=== PATIENT | male | born 1975 | race Caucasian/White ===

== ENCOUNTER 2020-11-29 11:21 | Emergency (ER) | payer SELFPAY ==
[~2020-11-29] VITALS: Ht 175.3 cm; Wt 89.4 kg
[2020-11-29 11:30] VITALS: BP 151/120
--- NOTE | 2020-11-29 11:30 | NUR ---
PT TAKEN TO BED 5 FOR BEDSIDE TRIAGE.
--- NOTE | 2020-11-29 11:55 | NUR ---
45 Y/O M BIB SELF FROM HOME, PATIENT PRESENTS TO ED WITH FOUL SMELLING URINE FOR 1 WEEK. PT DENIES ANY INCREASED FREQUENCY, DYSURIA, BLOOD, RETENTION OR ABD PAIN. DENIES N/V/D; SKIN IS PINK/WARM/DRY; AAOX4 WITH EVEN AND STEADY GAIT; LUNGS CLEAR BL; HR EVEN AND REGULAR; PT DENIES ANY FEVER, CP, SOB, OR COUGH AT THIS TIME; PATIENT STATES PAIN OF 0/10 AT THIS TIME; VSS; PATIENT POSITIONED FOR COMFORT; HOB ELEVATED; BEDRAILS UP X2; BED DOWN. ER MD MADE AWARE OF PT STATUS. PMH: DENIES NKA MED: NONE
--- NOTE | 2020-11-29 11:57 | NUR ---
PHILIP Milan is evaluating the patient at bedside.
[2020-11-29 12:10] LABS: APPEARANCE,URINE HAZY (CLEAR); BILIRUBIN,URINE NEGATIVE (NEGATIVE); BLOOD, URINE TRACE-I (NEGATIVE); COLOR,URINE YELLOW (YELLOW); LEUKOCYTE ESTERASE ,URINE NEGATIVE (NEGATIVE); NITRITE, URINE NEGATIVE (NEGATIVE); PH,URINE 5.5 (5.0-9.0); UGLUCOSE NEGATIVE (NEGATIVE)
[2020-11-29 12:53] VITALS: BP 138/105
--- NOTE | 2020-11-29 12:53 | NUR ---
Patient discharged with v/s stable. Written and verbal after care instructions given and explained. Patient verbalized understanding. Ambulatory with steady gait. All questions addressed prior to discharge. Advised to follow up with PMD.
== END 2020-11-29 12:53 | disposition home or self-care (01) ==
LOC: MED 11:21
DX: R82.998 Other abnormal findings in urine (principal)
CPT/HCPCS: 36415; 81003; 87086; 87491; 99283

== ENCOUNTER 2021-01-29 14:22 | Emergency (ER) | payer OTHER ==
[~2021-01-29] VITALS: Ht 175.3 cm; Wt 90.7 kg
[2021-01-29 14:54] VITALS: BP 142/105
--- NOTE | 2021-01-29 14:58 | NUR ---
PT TO WAIT IN LOBBY.
--- NOTE | 2021-01-29 15:02 | NUR ---
45 Y/O FEMALE C/O BP READING SBP 200 X1DAY WITH HEADACHE, TODAY DENIES HEADACHE AND BP 142/105 AT TRIAGE. DENIES N/V, DENIES FEVER/CHILLS. DENIES PMH NKA
--- NOTE | 2021-01-29 15:07 | NUR ---
PT TAKEN TO D FOR FURTHER EVALUATION.
--- NOTE | 2021-01-29 15:10 | NUR ---
DR. MARTINES WITH PT FOR FURTHER EVALUATION.
[2021-01-29 15:24] VITALS: BP 142/105
== END 2021-01-29 15:24 | disposition home or self-care (01) ==
LOC: MED 14:22
DX: R51.9 Headache, unspecified (principal); R03.0 Elevated blood-pressure reading, without diagnosis of hypertension; F17.210 Nicotine dependence, cigarettes, uncomplicated; F12.90 Cannabis use, unspecified, uncomplicated
CPT/HCPCS: 99281

== ENCOUNTER 2023-11-22 17:49 | Emergency (ER) | payer SELFPAY ==
[~2023-11-22] VITALS: Ht 175.3 cm; Wt 88.5 kg
[2023-11-22 18:03] VITALS: BP 171/96; PULSE 89; RESP 24; TEMP 97.9; O2SAT 97
[2023-11-22 18:40] LABS: APPEARANCE,URINE CLEAR (CLEAR); BILIRUBIN,URINE NEGATIVE (NEGATIVE); BLOOD, URINE NEGATIVE (NEGATIVE); COLOR,URINE YELLOW (YELLOW); LEUKOCYTE ESTERASE ,URINE NEGATIVE (NEGATIVE); NITRITE, URINE NEGATIVE (NEGATIVE); PH,URINE 7.5 (5.0-9.0); PROTEIN,URINE NEGATIVE (NEGATIVE); UGLUCOSE NEGATIVE (NEGATIVE)
[2023-11-22] MEDS ORDERED: NAPR-1704 PO (18:51)
[2023-11-22] MEDS ORDERED: BACI-418 TP (18:51)
[2023-11-22] MEDS ORDERED: ACYC400T14 PO (18:51)
== END 2023-11-22 19:08 | disposition home or self-care (01) ==
LOC: MED 17:49
DX: B02.9 Zoster without complications (principal); R21 Rash and other nonspecific skin eruption; I10 Essential (primary) hypertension; Z79.899 Other long term (current) drug therapy
CPT/HCPCS: 81003; 99283